=== PATIENT | female | born 1995 | race African-American/Black ===

== ENCOUNTER 2016-07-16 16:27 | Emergency (ER) | payer MEDICAID ==
[~2016-07-16] VITALS: Ht 167.6 cm; Wt 113.4 kg
[~2016-07-16 16:27] MED LIST: FERR324T11 PO
[2016-07-16 18:07] VITALS: BP 116/62
== END 2016-07-16 20:25 | disposition home or self-care (01) ==
LOC: ER 16:40
DX: M54.9 Dorsalgia, unspecified (principal); Z79.899 Other long term (current) drug therapy; F17.210 Nicotine dependence, cigarettes, uncomplicated; F12.10 Cannabis abuse, uncomplicated
CPT/HCPCS: 81025